=== PATIENT | male | born 1950 | race Caucasian/White ===

== ENCOUNTER 2017-01-18 08:01 | Observation (INO) | payer MEDICARE, BC ==
[2017-01-18] MEDS ORDERED: BABY ASPIRIN 81 MG CHEW PO ONE (08:05)
[2017-01-18] MEDS ORDERED: Cardizem IV 50 MG/10 ML IV ONE ×2 (08:07→08:19)
[2017-01-18] MEDS ORDERED: CARDIZEM DRIP 100 MG/100 ML D5W 100 ML IV PRN (08:07)
--- NOTE | 2017-01-18 08:14 | ERPHSYRPT ---
- History of Present Illness Time Seen by Provider: 01/18/17 08:03 Historian: patient Exam Limitations: no limitations Patient Subjective Stated Complaint: arrhythmia Triage Nursing Assessment: states as of yesterday, pt states he felt run down. went to cardiac rehab and ekg showed afib. on arrival, pt skin warm, dry. denies pain or chest prssure, just 'feels run down' no sob noted. no n/v Timing/Duration: today Activities at Onset: none, other (He had not begun his exercise yet, but was found to be in rapid rhythm on monitor prior to exercise) Quality: other (palpitations) Severity of Pain-Max: none Severity of Pain-Current: none Modifying Factors: Improves With: nothing Associated Symptoms: other (malaise) Nitro Today/Relief: no nitro taken today Aspirin Treatment Today: no aspirin today Allergies/Adverse Reactions: No Known Drug Allergies Allergy (Verified 01/18/17 08:07) Home Medications: Aspirin 81 mg PO DAILY 01/18/17 [History] Clopidogrel Bisulfate 75 mg [PLAVIX 75 MG Tablet] 75 mg PO DAILY 01/18/17 [History] Docusate Sodium 100 mg [Colace 100 MG] 100 mg PO DAILY 01/18/17 [History] Dutasteride 0.5 MG [Avodart 0.5 MG] 0.5 mg PO DAILY 01/18/17 [History] Lactobacillus Acidophilus [Acidophilus] 2 each PO DAILY 01/18/17 [History] Metoprolol Tartrate 25 mg [Lopressor 25MG Tab] 12.5 mg PO DAILY 01/18/17 [ History] PANTOPRAZOLE 40 mg Tablet [Protonix 40MG Tablet] 40 mg PO DAILY 01/18/17 [ History] Rivaroxaban 10 mg Tablet [Xarelto 10 mg Tablet] 10 mg PO DAILY 01/18/17 [ History] Rosuvastatin Calcium [Crestor] 40 mg PO DAILY 01/18/17 [History] Saw [place] 500 mg PO BID 01/18/17 [History] Tamsulosin HCl 0.4 mg [Flomax 0.4 MG] 0.4 mg PO DAILY 01/18/17 [History] Hx Tetanus, Diphtheria Vaccination/Date Given: Yes Hx Influenza Vaccination/Date Given: Yes Hx Pneumococcal Vaccination/Date Given: No Immunizations Up to Date: Yes - Review of Systems Constitutional: Malaise Eyes: No Symptoms Ears, Nose, & Throat: No Symptoms Respiratory: No Symptoms Cardiac: Palpitations Abdominal/Gastrointestinal: No Symptoms Musculoskeletal: No Symptoms Skin: No Symptoms Psychological: No Symptoms Endocrine: No Symptoms Hematologic/Lymphatic: No Symptoms Immunological/Allergic: No Symptoms - Past Medical History Pertinent Past Medical History: Yes Neurological History: No Pertinent History ENT History: No Pertinent History Cardiac History: Angina, Coronary Artery Disease, High Cholesterol, Myocardial Infarction (CT) Respiratory History: Sleep Apnea Endocrine Medical History: No Pertinent History Musculoskeletal History: Arthritis GI Medical History: Diverticulosis History: No Pertinent History Psycho-Social History: No Pertinent History Male Reproductive Disorders: No Pertinent History - Past Surgical History Past Surgical History: Yes Neuro Surgical History: No Pertinent History Cardiac: Angioplasty, CABG, Cardiac Catheterization, Cardiac Stent Respiratory: No Pertinent History Gastrointestinal: Cholecystectomy Genitourinary: No Pertinent History Musculoskeletal: Orthopedic Surgery Male Surgical History: Vasectomy - Social History Smoking Status: Never smoker Exposure to second hand smoke: No Drug Use: none Patient Lives Alone: No - Nursing Vital Signs Nursing Vital Signs: Initial Vital Signs Temperature 97.6 F Temperature Source Oral Pulse Rate 70 Respiratory Rate 18 Blood Pressure [Right Arm] 106/60 Blood Pressure 106/51 Pain Intensity 0 - Physical Exam General Appearance: mild distress Eye Exam: eyes nml inspection Ears, Nose, Throat Exam: normal ENT inspection, pharynx normal Neck Exam: normal inspection, non-tender, supple, full range of motion Respiratory Exam: normal breath sounds, lungs clear, airway intact Cardiovascular Exam: tachycardia Gastrointestinal/Abdomen Exam: soft, normal bowel sounds Extremity Exam: normal inspection, normal range of motion, pelvis stable, other (healed SVG donor sites LE) Neurologic Exam: alert, oriented x 3, cooperative, normal mood/affect, nml cerebellar function, nml station & gait, sensation nml Skin Exam: normal color, warm, dry SpO2 Interpretation: normal SpO2: 98 Oxygen Delivery: Room Air - Course Nursing assessment & vital signs reviewed: Yes EKG Interpreted by Me: RATE (109), A-fib, Right Esparto Deviation (at +123 degrees. 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 01/18/17 08:05 Active EKG-ER Only STAT Care 01/18/17 08:05 Active IV Insertion STAT Care 01/18/17 08:05 Active Oxygen-ED Only NASAL CANNULA 2 lpm Care 01/18/17 08:05 Active Pulse Oximetry (ED) STAT Care 01/18/17 08:05 Active CHEST 1 VIEW (PORTABLE) Stat Exams 01/18/17 08:06 Completed CBC W DIFF Stat Lab 01/18/17 08:10 Completed CK-Creatinine Phosphokinase Stat Lab 01/18/17 08:10 Completed CMP Stat Lab 01/18/17 08:10 Completed NT PRO BNP Stat Lab 01/18/17 08:10 Completed PROTIME WITH INR Stat Lab 01/18/17 08:10 Completed TROPONIN Q3H Lab 01/18/17 08:10 Completed TROPONIN Q3H Lab 01/18/17 11:15 Ordered TROPONIN Q3H Lab 01/18/17 14:15 Ordered TROPONIN Q3H Lab 01/18/17 17:15 Ordered TROPONIN Q3H Lab 01/18/17 20:15 Ordered Medication Summary Generic Name Dose Route Start Last Admin Trade Name Freq PRN Reason Stop Dose Admin Diltiazem HCl 100 mls @ 5 mls/hr 01/18/17 08:07 01/18/17 08:29 Cardizem Drip 100 Mg/100 Ml D5w IV 02/17/17 08:06 5 mg/hr .Q20H PRN 5 mls/hr HEART RATE/ A-FIB Administration Protocol 5 MG/HR Sodium Chloride 1,000 mls @ 100 mls/hr 01/18/17 08:30 01/18/17 08:30 Sodium Chloride 0.9% 1000 Ml IV 02/17/17 08:29 100 mls/hr .Q10H BORIS Administration Discontinued Medications Generic Name Dose Route Start Last Admin Trade Name Freq PRN Reason Stop Dose Admin Aspirin 324 mg 01/18/17 08:05 01/18/17 08:19 Baby Aspirin 81 Mg Chew PO 01/18/17 08:06 324 mg STAT ONE Administration Aspirin Confirm 01/18/17 08:16 Baby Aspirin 81 Mg Chew Administered 01/18/17 08:17 Dose 324 mg .ROUTE .STK-MED ONE Diltiazem HCl 15 mg 01/18/17 08:07 01/18/17 08:18 Cardizem Iv 50 Mg/10 Ml IV 01/18/17 08:08 15 mg STAT ONE Administration Diltiazem HCl Confirm 01/18/17 08:19 Cardizem Iv 50 Mg/10 Ml Administered 01/18/17 08:20 Dose 50 mg IV .STK-MED ONE Lab/Rad Data: Laboratory Result Diagrams 01/18/17 08:10 01/18/17 08:10 Laboratory Results 01/18/17 01/18/17 01/18/17 Range/Units 08:10 08:10 08:10 WBC (4.0-10.5) K/mm3 RBC (4.1-5.6) M/mm3 Hgb (12.5-18.0) gm/dl Hct (42-50) % MCV (78-100) fl MCH (26-32) pg MCHC (32-36) g/dl RDW (11.5-14.0) % Plt Count (150-450) K/mm3 MPV (6-9.5) fl Gran % (36.0-66.0) % Lymphocytes % (24.0-44.0) % Monocytes % (0.0-12.0) % Eosinophils % (0.00-5.0) % Basophils % (0.0-0.4) % Basophils # (0-0.4) INR 1.32 (0.8-3.0) Sodium 142 (136-145) mEq/L Potassium 3.8 (3.5-5.1) mEq/L Chloride 105 (98-107) mEq/L Carbon Dioxide 25.8 (21-32) mEq/L Anion Gap 14.6 (5-15) MEQ/L BUN 16 (9-20) mg/dL Creatinine 1.21 (0.55-1.30) mg/dl Estimated GFR > 60 ML/MIN Glucose 190 H (70-110) MG/DL Calcium 8.9 (8.5-10.1) mg/dL Total Bilirubin 0.60 (0.2-1.0) mg/dL AST 14 L (15-37) U/L ALT 26 (12-78) U/L Alkaline Phosphatase 58 (46-116) U/L Creatine Kinase 67 (39-308) U/L Troponin I 0.018 (0.000-0.056) ng/ml NT-Pro-B Natriuret Pep 980 H (0-125) pg/ml Serum Total Protein 7.2 (6.4-8.2) gm/dL Albumin 3.6 (3.4-5.0) g/dL 01/18/17 Range/Units 08:10 WBC 7.8 (4.0-10.5) K/mm3 RBC 5.36 (4.1-5.6) M/mm3 Hgb 15.6 (12.5-18.0) gm/dl Hct 45.7 (42-50) % MCV 85.3 (78-100) fl MCH 29.1 (26-32) pg MCHC 34.1 (32-36) g/dl RDW 13.6 (11.5-14.0) % Plt Count 179 (150-450) K/mm3 MPV 11.0 H (6-9.5) fl Gran % 59.4 (36.0-66.0) % Lymphocytes % 29.1 (24.0-44.0) % Monocytes % 9.8 (0.0-12.0) % Eosinophils % 1.3 (0.00-5.0) % Basophils % 0.4 (0.0-0.4) % Basophils # 0.03 (0-0.4) INR (0.8-3.0) Sodium (136-145) mEq/L Potassium (3.5-5.1) mEq/L Chloride (98-107) mEq/L Carbon Dioxide (21-32) mEq/L Anion Gap (5-15) MEQ/L BUN (9-20) mg/dL Creatinine (0.55-1.30) mg/dl Estimated GFR ML/MIN Glucose (70-110) MG/DL Calcium (8.5-10.1) mg/dL Total Bilirubin (0.2-1.0) mg/dL AST (15-37) U/L ALT (12-78) U/L Alkaline Phosphatase (46-116) U/L Creatine Kinase (39-308) U/L Troponin I (0.000-0.056) ng/ml NT-Pro-B Natriuret Pep (0-125) pg/ml Serum Total Protein (6.4-8.2) gm/dL Albumin (3.4-5.0) g/dL - Progress Progress: improved Air Movement: good Blood Culture(s) Obtained: No Antibiotics given: No Discussed with Dr.: Gordon (accepts for Dr. Gardner), Other (Dr. Maldonado agrees with admission here.) Counseled pt/family regarding: lab results, diagnosis, need for follow-up, rad results - Departure Time of Disposition: 09:00 Departure Disposition: Observation Clinical Impression: Atrial fibrillation with rapid ventricular response, H/O heart artery stent, H/ O coronary artery bypass surgery Condition: Stable Critical Care Time: Yes Critical Care Time(excluding separately billable procedures): 75-104 minutes ( Atrial Fib nwith RVR with Cardizem IV to control rate. Discussed with Network Systems Integrator, pt. and spouse.)
[2017-01-18] MEDS ORDERED: BABY ASPIRIN 81 MG CHEW ONE (08:16)
[2017-01-18 08:19] LABS: BASOPHIL % 0.4 % (0.0-0.4); Eosinophil % 1.3 % (0.00-5.0); Granulocytes % 59.4 % (36.0-66.0); Lymphocytes % 29.1 % (24.0-44.0); Mean Cell Volume 85.3 fl (78-100); Mean Corpuscular Hemoglobin 29.1 pg (26-32); Monocytes % 9.8 % (0.0-12.0); Platelet Count 179 K/mm3 (150-450); Red Blood Count 5.36 M/mm3 (4.1-5.6); Red Cell Distribution Width 13.6 % (11.5-14.0); White Blood Count 7.8 K/mm3 (4.0-10.5)
[2017-01-18] MEDS ORDERED: Sodium Chloride 0.9% 1000 ML 1,000 ML ONE (08:27)
[2017-01-18 08:30] LABS: INR 1.32 (0.8-3.0); PROTIME 14.8 SECONDS (8.83-12.87)
[2017-01-18] MEDS ORDERED: Sodium Chloride 0.9% 1000 ML 1,000 ML IV SCH (08:30)
--- NOTE | 2017-01-18 08:32 | XRAY ---
Indication: Atrial fibrillation. Comparison: September 24, 2008. Portable chest underinflated today again with bilateral calcified granulomas. Bibasilar linear opacities favor atelectasis/scarring. Remaining lungs clear. Heart is not enlarged for AP portable technique and again demonstrates previous CABG surgery. Bony thorax intact again with osteopenia and degenerative changes. Impression: Nonacute underinflated chest with chronic features.
[2017-01-18 08:45] LABS: ALBUMIN 3.6 g/dL (3.4-5.0); ALKALINE PHOSPHATASE 58 U/L (46-116); ANION GAP 14.6 MEQ/L (5-15); BLOOD UREA NITROGEN 16 mg/dL (9-20); CHLORIDE 105 mEq/L (98-107); Carbon Dioxide 25.8 mEq/L (21-32); Glucose 190 MG/DL (70-110); Potassium 3.8 mEq/L (3.5-5.1); SGOT/AST 14 U/L (15-37); SGPT/ALT 26 U/L (12-78); SODIUM 142 mEq/L (136-145); Total Protein 7.2 gm/dL (6.4-8.2)
[2017-01-18] MEDS ORDERED: Lasix 40 MG/4 ML IV ONE (09:18)
[2017-01-18] MEDS ORDERED: Lasix 40 MG/4 ML ONE (09:21)
[2017-01-18] MEDS ORDERED: MORPHINE SULFATE 4 MG INJ IV PRN (11:40)
[2017-01-18] MEDS ORDERED: PROTONIX 40 MG IV IV SCH (11:40)
[2017-01-18] MEDS ORDERED: Zofran 4 MG/2 ML VIAL IV PRN (11:40)
--- NOTE | 2017-01-18 12:59 | PCM.HP ---
History of Present Illness - Chief Complaint Chief Complaint: Afib with RVR History of Present Illness: is a 66 year old male with a history of CABG in the past with subsequent stenting of grafts earlier this year. He presented to cardiac rehab this morning and was found to be in a fib with RVR. He reports that he felt tight in his upper chest last night and had some nausea but no vomiting. He is currently on a cardizem drip and rate is controlled and he has no chest pain, no dyspnea, no palpitations, he states he feels normal. He has been seen by Dr Maldonado and is going to be started on po cordarone. - Review of Systems Constitutional: No Fever, No Chills Respiratory: No Cough, No Short Of Breath Cardiac: Palpitations, No Chest Pain, No Edema, No Syncope Abdominal/Gastrointestinal: No Abdominal Pain, No Nausea, No Vomiting, No Diarrhea Genitourinary Symptoms: No Dysuria Skin: No Rash All Other Systems: Reviewed and Negative Medications & Allergies Home Medications: Home Medication List Aspirin 81 mg PO DAILY 01/18/17 [History Confirmed 01/18/17] Clopidogrel Bisulfate 75 mg [PLAVIX 75 MG Tablet] 75 mg PO DAILY 01/18/17 [History Confirmed 01/18/17] Docusate Sodium 100 mg [Colace 100 MG] 100 mg PO DAILY 01/18/17 [History Confirmed 01/18/17] Dutasteride 0.5 MG [Avodart 0.5 MG] 0.5 mg PO DAILY 01/18/17 [History Confirmed 01/18/17] Lactobacillus Acidophilus [Acidophilus] 2 each PO DAILY 01/18/17 [History Confirmed 01/18/17] Metoprolol Tartrate 25 mg [Lopressor 25MG Tab] 12.5 mg PO DAILY 01/18/17 [ History Confirmed 01/18/17] PANTOPRAZOLE 40 mg Tablet [Protonix 40MG Tablet] 40 mg PO DAILY 01/18/17 [ History Confirmed 01/18/17] Rivaroxaban 10 mg Tablet [Xarelto 10 mg Tablet] 10 mg PO DAILY 01/18/17 [ History Confirmed 01/18/17] Rosuvastatin Calcium [Crestor] 40 mg PO DAILY 01/18/17 [History Confirmed ] Saw [place] 500 mg PO BID 01/18/17 [History Confirmed 01/18/17] Tamsulosin HCl 0.4 mg [Flomax 0.4 MG] 0.4 mg PO DAILY 01/18/17 [History Confirmed 01/18/17] Allergies/Adverse Reactions: Allergies Allergy/AdvReac Type Severity Reaction Status Date / Time No Known Drug Allergies Allergy Verified 01/18/17 08:07 - Past Medical History Past Medical History: Yes Neurological History: No Pertinent History ENT History: No Pertinent History Cardiac History: Angina, Arrhythmia, Coronary Artery Disease, High Cholesterol, Myocardial Infarction ([place]) Respiratory History: Sleep Apnea Endocrine Medical History: No Pertinent History Musculoskelatal History: Arthritis GI Medical History: Diverticulosis History: No Pertinent History Pyscho-Social History: No Pertinent History Male Reproductive Disorders: No Pertinent History Comment: cardiac stents total of [address]. [address] 09/22/16. AFIB/Aflutter - Past Surgical History Past Surgical History: Yes Neuro Surgical History: No Pertinent History Cardiac History: Angioplasty, CABG, Cardiac Catheterization, Cardiac Stent Respiratory Surgery: No Pertinent History GI Surgical History: Cholecystectomy Genitourinary Surgical Hx: No Pertinent History Musculskeletal Surgical Hx: Orthopedic Surgery Male Surgical History: Vasectomy Other Surgical History: total hip right, broken femur left leg, broken ankle. rods and steel placed in leg to repair. - Social History Smoking Status: Never smoker Exposure to second hand smoke: No Alcohol: None Drug Use: none - Physical Exam Vital Signs: Vital Signs - 24 hr Temp Pulse Resp BP BP Pulse Ox 01/18/17 12:14 74 18 98 01/18/17 11:47 97.8 F 66 18 109/69 01/18/17 09:40 66 18 104/67 01/18/17 09:28 74 18 106/71 01/18/17 09:10 98 01/18/17 09:00 70 18 106/62 98 01/18/17 08:48 70 18 106/60 97 01/18/17 08:34 66 16 116/61 97 01/18/17 08:31 76 18 116/61 98 01/18/17 08:29 68 16 106/51 01/18/17 08:13 98 01/18/17 08:03 97.6 F 104 H 20 121/76 Oxygen-Last 24 hours O2 Percentage 2 Liters = 28% O2 Percentage 2 Liters = 28% O2 Percentage 2 Liters = 28% O2 Percentage 2 Liters = 28% O2 Percentage 2 Liters = 28% O2 Percentage 2 Liters = 28% General Appearance: no apparent distress, alert Neurologic Exam: alert, oriented x 3, cooperative, normal mood/affect, nml cerebellar function, nml station & gait, sensation nml, No motor deficits Eye Exam: PERRL/EOMI, eyes nml inspection Neck Exam: thyromegaly Cardiovascular Exam: irregular Gastrointestinal/Abdomen Exam: soft, normal bowel sounds, No tenderness, No mass Extremity Exam: normal inspection, normal range of motion, pelvis stable Skin Exam: normal color, warm, dry, No rash Results - Labs Lab/Micro Results: Lab Results-Last 24 Hours 01/18/17 Range/Units 11:40 Troponin I < 0.017 (0.000-0.056) ng/ml Assessment/Plan (1) Atrial fibrillation with rapid ventricular response Current Visit: Yes Status: Acute Assessment & Plan: currently rate controlled, will add tsh to labs and rule out myocardial infarction. appreciate Dr Maldonado's input and will be started on po cordarone as ordered. Code(s): I48.91 - UNSPECIFIED ATRIAL FIBRILLATION (2) H/O coronary artery bypass surgery Current Visit: Yes Status: Acute (3) H/O heart artery stent Current Visit: Yes Status: Acute Code(s): Z95.5 - PRESENCE OF CORONARY ANGIOPLASTY IMPLANT AND GRAFT
[2017-01-18] MEDS: NEXTERONE 360 MG/200 ML BAG 360 MG/200 ML PLAST..BAG IV SCH ×2 (13:07→20:16)
--- NOTE | 2017-01-18 13:36 | CONS ---
CONSULT DATE: 01/18/17 BRIEF HISTORY: This is a 66 y/o male, with known history of coronary artery disease status post previous coronary artery bypass surgery status post recent myocardial infarction post PCI to the left circumflex, who was admitted this morning because of atrial fibrillation. Patient apparently woke up this morning. Was nauseated. Was having some chest discomfort. He went for his cardiac rehab. An EKG was performed and showed he was in atrial fibrillation with a rapid ventricular response. He was then brought to the Emergency Room and was started on IV Cardizem. Currently, he is chest pain free. He denies any shortness of breath. He is still in atrial fibrillation on Cardizem drip. Patient is known to have coronary artery disease. Has undergone previous coronary artery bypass surgery way back in 1998 and recently had a myocardial infarction ending up with a percutaneous intervention of the circumflex. During his recent confinement in [place] where he had his myocardial infarction, he did have atrial fibrillation and momentarily was placed on amiodarone. He was then discharged on beta-blockers. CARDIOVASCULAR RISK FACTORS: Positive for hyperlipidemia. No diabetes. He does not smoke. Family history is positive for coronary artery disease. No hypertension. CURRENT MEDICATIONS: Aspirin, Crestor, metoprolol, Protonix, Plavix, Flomax, and Xarelto. 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 RESPIRATORY: No chronic cough. No hemoptysis. GI: No history of peptic ulcer or colon disorder. : Negative for dysuria. No hematuria. PERIPHERAL VASCULAR: Negative for deep vein thrombosis or claudication. SKIN: No active dermatological problem. PAST SURGICAL HISTORY: Included coronary artery bypass surgery and some orthopedic procedures. PHYSICAL EXAMINATION: BP is 108/70 with a heart rate of 74 in atrial fibrillation. Respirations about 14. GENERAL: Patient is an elderly male who is alert and oriented who is in no form of distress. HEENT: Unremarkable. NECK: No significant JVD. No carotid bruit. CHEST: Breath sounds are clear. CARDIAC: Heart tones are variable. The rhythm is atrial fibrillation. There is no audible gallop. ABDOMEN: Soft with normal bowel sounds. No bruits. EXTREMITIES: No significant edema with palpable distal pulses. The EKG shows atrial fibrillation with a RBBB. The creatinine is 1.2 and GFR greater than 60. The serum electrolytes are normal. The NT Pro BNP is 980. CBC showed Hgb of 15.6, platelets 179. CONCLUSION: 1. IN ESSENCE, PATIENT HAS PAROXYSMAL ATRIAL FIBRILLATION. We are going to switch him to amiodarone and stop his Cardizem. Continue with anticoagulation. 2. CORONARY ARTERY DISEASE POST PREVIOUS CORONARY ARTERY BYPASS SURGERY POST PREVIOUS PERCUTANEOUS INTERVENTION. Currently, chest pain free. Troponin I within normal limits. 3. HYPERLIPIDEMIA. Continue with statins. Will follow-up with you.
[2017-01-18] MEDS: XARELTO 10 MG TABLET PO SCH (16:41)
[2017-01-18] MEDS: PLAVIX 75 MG Tablet PO SCH (16:41)
[2017-01-18] MEDS: Colace 100 MG PO SCH (16:41)
[2017-01-18] MEDS: Flomax 0.4 MG PO SCH (16:41)
[2017-01-18] MEDS: Avodart 0.5 MG PO SCH (16:42)
[2017-01-18] MEDS: Lopressor 25MG Tab PO SCH (16:42)
[2017-01-18] MEDS: Cordarone 200 MG PO SCH (21:46)
[2017-01-18] MEDS ORDERED: ZOCOR 20MG PO SCH (22:00)
[2017-01-19] MEDS: NEXTERONE 360 MG/200 ML BAG 360 MG/200 ML PLAST..BAG IV SCH (02:25)
[2017-01-19 06:20] LABS: INR 1.85 (0.8-3.0); PROTIME 20.8 SECONDS (8.83-12.87)
[2017-01-19] MEDS ORDERED: NON-FORMULARY ITEM (Rosuvastatin Calcium [Crestor] 40 MG) PO SCH (10:00)
[2017-01-19] MEDS ORDERED: NON-FORMULARY ITEM (Aspirin [Aspirin] 81 MG) PO SCH (10:00)
[2017-01-19] MEDS ORDERED: Protonix 40MG Tablet PO SCH (10:00)
[2017-01-19] MEDS: Lopressor 25MG Tab PO SCH (10:00)
[2017-01-19] MEDS ORDERED: ECOTRIN 81 MG PO SCH (10:00)
[2017-01-19] MEDS: XARELTO 10 MG TABLET PO SCH (10:01)
[2017-01-19] MEDS: Cordarone 200 MG PO SCH (10:01)
[2017-01-19] MEDS: Avodart 0.5 MG PO SCH (10:03)
[2017-01-19] MEDS: Colace 100 MG PO SCH (10:03)
[2017-01-19] MEDS: Flomax 0.4 MG PO SCH (10:03)
[2017-01-19] MEDS: PLAVIX 75 MG Tablet PO SCH (10:03)
[2017-01-19 10:41] VITALS: BP 128/70; PULSE 62; O2SAT 97
--- NOTE | 2017-01-19 11:59 | SSS ---
DISCHARGE DIAGNOSIS: 1. ATRIAL FIBRILLATION WITH RAPID VENTRICULAR RESPONSE NOW CONVERTED. 2. CORONARY ARTERY DISEASE. CONSULTANTS: Dr. Maldonado. BRIEF HISTORY: The patient is a 66 y/o WM patient with known history of coronary artery disease. He apparently had a recent coronary bypass surgery. He had also had a recent myocardial infarction to the left circumflex area. The patient was seen in the Emergency Room and admitted due to atrial fibrillation with rapid ventricular response. His symptoms were nausea and chest discomfort. The patient was seen in the Emergency Room and admitted to the hospital. HOSPITAL COURSE: The patient was admitted initially on a Cardizem drip which did not make any difference on his atrial fibrillation. He was therefore then changed to an amiodarone drip which did convert him to normal sinus rhythm which he is currently in presently. The patient is anxious to return home. He has the blessing of his regional marketing manager. He will be placed on amiodarone orally and follow-up with his regional marketing manager in his office. PHYSICAL EXAMINATION: Reveals a well-nourished, well-developed, 66 y/o WM patient in no obvious distress. HEENT: Normocephalic and atraumatic. Pupils equal, round, and reactive to light. Extraocular movements intact. Oropharynx is pink and moist. NECK: Supple without lymphadenopathy, thyromegaly, or JVD. CHEST: Clear to auscultation with good air movement bilaterally. HEART: Regular rate and rhythm without murmurs, rubs, or gallops. There is a median sternotomy scar which is well healed. ABDOMEN: Soft, nontender, nondistended without hepatosplenomegaly or masses. EXTREMITIES: Without cyanosis, clubbing, or edema. NEURO: The patient is alert and oriented X 3. No focal deficits are noted. HOME MEDICATIONS: The patient's home medication list currently includes aspirin 81 mg a day, Plavix 75 mg daily, Colace 100 mg daily, Avodart 0.5 mg daily, metoprolol 25 mg/12.5 mg daily, pantoprazole 40 mg daily, Xarelto 10 mg, Crestor 40 mg, Saw [place], Tamsulosin 0.4 mg daily. LABORATORY DATA: Shows troponins less than 0.017 on several measurements. His nonfasting glucose is 190, BUN 16, creatinine 1.21. Electrolytes were normal. Liver enzymes were normal. NT Pro BNP was 980 which is slightly elevated for our lab. His CBC was normal. Platelets were normal. INR was 1.32. TSH was normal. Chest x-ray showed nonacute underinflated chest with chronic features. EKG/rhythm strip now again reveal sinus rhythm. Again, the patient will be discharged home now on addition of Cordarone with follow-up appointment to see his regional marketing manager within a week.
== END 2017-01-19 10:35 | disposition home or self-care (01) ==
LOC: ED 08:01 → ICU 10:10
PROVIDERS: ADMIT Family Medicine; ATTEND Family Medicine
DX: I48.91 Unspecified atrial fibrillation (principal); I25.810 Atherosclerosis of coronary artery bypass graft(s) without angina pectoris; G47.30 Sleep apnea, unspecified; E78.5 Hyperlipidemia, unspecified; M19.90 Unspecified osteoarthritis, unspecified site; Z79.01 Long term (current) use of anticoagulants; Z79.899 Other long term (current) drug therapy; I25.2 Old myocardial infarction; Z95.5 Presence of coronary angioplasty implant and graft
CPT/HCPCS: 36000; 36415; 71010; 80053; 82550; 83880; 84443; 84484; 85025; 85610; 93005; 93041; 93268; 96360; 96361; 96365; 96374; 96375; 99285; G0378; J1940; A9270-GY

== ENCOUNTER 2018-03-23 12:01 | Emergency (ER) | payer MEDICARE, OTHER ==
--- NOTE | 2018-03-23 12:30 | ERPHSYRPT ---
- History of Present Illness Time Seen by Provider: 03/23/18 12:22 Source: patient Exam Limitations: no limitations Patient Subjective Stated Complaint: cut left wrist with a utility knife. Triage Nursing Assessment: pt has laceration to left wrist, with small amount of bleeding, pressure allpied Physician History: Patient is a 67-year-old right-handed male with his complaining that he accidentally cut his left wrist with an [employer] knife [place]. He denies numbness or tingling. He is able to move his extremity without problems. His last tetanus vaccination was several years ago and the exact date is unknown. His past medical history is significant for CAD, CABG, coronary artery stent placement, A. fib, hypertension, high cholesterol, GERD, and BPH. Timing/Duration: today Quality: other (laceration) Severity: mild Location: extremities (left wrist) Possible Causes: other (knife) Associated Symptoms: denies symptoms Allergies/Adverse Reactions: No Known Drug Allergies Allergy (Verified 03/23/18 12:05) Home Medications: Aspirin 81 mg PO DAILY 01/18/17 [History] Clopidogrel Bisulfate 75 mg [PLAVIX 75 MG Tablet] 75 mg PO DAILY 01/18/17 [History] Docusate Sodium 100 mg [Colace 100 MG] 100 mg PO DAILY 01/18/17 [History] Dutasteride 0.5 MG [Avodart 0.5 MG] 0.5 mg PO DAILY 01/18/17 [History] Lactobacillus Acidophilus [Acidophilus] 2 each PO DAILY 01/18/17 [History] Metoprolol Tartrate 25 mg [Lopressor 25MG Tab] 12.5 mg PO DAILY 01/18/17 [ History] PANTOPRAZOLE 40 mg Tablet [Protonix 40MG Tablet] 40 mg PO DAILY 01/18/17 [ History] Rivaroxaban 10 mg Tablet [Xarelto 10 mg Tablet] 10 mg PO DAILY 01/18/17 [ History] Rosuvastatin Calcium [Crestor] 40 mg PO DAILY 01/18/17 [History] Saw [place] 500 mg PO BID 01/18/17 [History] Tamsulosin HCl 0.4 mg [Flomax 0.4 MG] 0.4 mg PO DAILY 01/18/17 [History] Hx Tetanus, Diphtheria Vaccination/Date Given: No Hx Influenza Vaccination/Date Given: No Hx Pneumococcal Vaccination/Date Given: Yes Immunizations Up to Date: Yes - Review of Systems Constitutional: No Fever, No Chills Eyes: No Symptoms Ears, Nose, & Throat: No Symptoms Respiratory: No Cough, No Dyspnea Cardiac: No Chest Pain, No Edema, No Syncope Abdominal/Gastrointestinal: No Abdominal Pain, No Nausea, No Vomiting, No Diarrhea Genitourinary Symptoms: No Dysuria Musculoskeletal: No Back Pain, No Neck Pain Skin: Other (laceration) Neurological: No Dizziness, No Focal Weakness, No Sensory Changes Psychological: No Symptoms Endocrine: No Symptoms Hematologic/Lymphatic: No Symptoms Immunological/Allergic: No Symptoms All Other Systems: Reviewed and Negative - Past Medical History Pertinent Past Medical History: Yes Neurological History: No Pertinent History ENT History: No Pertinent History Cardiac History: Angina, Arrhythmia, Coronary Artery Disease, High Cholesterol, Myocardial Infarction (VT) Respiratory History: Sleep Apnea Endocrine Medical History: No Pertinent History Musculoskeletal History: Arthritis GI Medical History: Diverticulosis History: No Pertinent History Psycho-Social History: No Pertinent History Male Reproductive Disorders: No Pertinent History Other Medical History: cardiac stents total of [address]. [address] 09/22/16. AFIB/ Aflutter - Past Surgical History Past Surgical History: Yes Neuro Surgical History: No Pertinent History Cardiac: Angioplasty, CABG, Cardiac Catheterization, Cardiac Stent Respiratory: No Pertinent History Gastrointestinal: Cholecystectomy Genitourinary: No Pertinent History Musculoskeletal: Orthopedic Surgery Male Surgical History: Vasectomy Other Surgical History: total hip right, broken femur left leg, broken ankle. rods and steel placed in leg to repair. - Social History Smoking Status: Never smoker Exposure to second hand smoke: No Drug Use: none Patient Lives Alone: No - Nursing Vital Signs Nursing Vital Signs: Initial Vital Signs Temperature 97.9 F 03/23/18 12:07 Pulse Rate 62 03/23/18 12:07 Respiratory Rate 03/23/18 12:07 Blood Pressure 137/75 03/23/18 12:07 O2 Sat by Pulse Oximetry 97 03/23/18 12:07 Pain Scale Pain Intensity 0 - Physical Exam General Appearance: no apparent distress, alert Eye Exam: PERRL/EOMI, eyes nml inspection Ears, Nose, Throat Exam: normal ENT inspection, pharynx normal, moist mucous membranes Neck Exam: normal inspection, non-tender, supple, full range of motion Respiratory Exam: normal breath sounds, lungs clear, No respiratory distress Cardiovascular Exam: regular rate/rhythm, normal heart sounds Gastrointestinal/Abdomen Exam: soft, mass, No tenderness Rectal Exam: not done Back Exam: normal inspection, normal range of motion, No CVA tenderness, No vertebral tenderness Extremity Exam: normal inspection, normal range of motion Neurologic Exam: alert, oriented x 3, cooperative, normal mood/affect, sensation nml, No motor deficits Skin Exam: laceration (2.5 cm linear laceration to left wrist) SpO2 Interpretation: normal SpO2: 97 Oxygen Delivery: Room Air Procedures - Laceration/Wound Repair Left Wrist Wound Location: Left, wrist Wound Length (cm): 2.5 Wound's Depth, Shape: superficial, linear Wound Explored: clean Irrigated: No Hibiclens Prep: Yes Anesthesia: local Volume Anesthetic (ccs): 7 Wound Repaired With: sutures Suture Size/Type: 5-0, ethilon Number of Sutures: 3 Ordered Tests: Medication Summary Discontinued Medications Generic Name Dose Route Start Last Admin Trade Name Freq PRN Reason Stop Dose Admin Diphtheria/Tetanus/Acell Pertussis 0.5 ml 03/23/18 12:34 03/23/18 12:40 Adacel Vial IM 03/23/18 12:35 0.5 ml .ONCE ONE Administration Lidocaine HCl 10 ml 03/23/18 12:34 03/23/18 12:52 Xylocaine 1% Hcl 20 Ml Mdv IJ 03/23/18 12:35 10 ml STAT ONE Administration Lidocaine HCl Confirm 03/23/18 12:36 Xylocaine 1% Hcl 20 Ml Mdv Administered 03/23/18 12:37 Dose 5 ml .ROUTE .STK-MED ONE Tetanus/Diphtheria Toxoids Adsorbed Confirm 03/23/18 12:36 Tenivac Vial Administered 03/23/18 12:37 Dose 0.5 ml IM .STK-MED ONE - Progress Progress: improved Counseled pt/family regarding: diagnosis, need for follow-up - Departure Time of Disposition: 13:15 Departure Disposition: Home Clinical Impression: Laceration of left wrist Condition: Stable Critical Care Time: No Referrals: ALEX HANCOCK NP [Primary Care Provider] - Additional Instructions: You had a laceration closed with 3 sutures to your left wrist in the ER. You were given a tetanus vaccination. Keep the wound clean and dry but you can take a brief shower as needed. Have your primary medical doctor remove the sutures in about 12 days. Take Tylenol and ibuprofen as needed.
[2018-03-23] MEDS ORDERED: Adacel Vial IM ONE (12:34)
[2018-03-23] MEDS ORDERED: XYLOCAINE 1% HCL 20 ML MDV IJ ONE (12:34)
[2018-03-23] MEDS ORDERED: TENIVAC VIAL IM ONE (12:36)
[2018-03-23] MEDS ORDERED: XYLOCAINE 1% HCL 20 ML MDV ONE (12:36)
[2018-03-23 13:26] VITALS: BP 140/75; PULSE 50; O2SAT 98
== END 2018-03-23 13:28 | disposition home or self-care (01) ==
LOC: ED 12:01
DX: S61.512A Laceration without foreign body of left wrist, initial encounter (principal); W26.0XXA Contact with knife, initial encounter; Y93.89 Activity, other specified; Y92.79 Other farm location as the place of occurrence of the external cause; Z79.01 Long term (current) use of anticoagulants; Z79.899 Other long term (current) drug therapy
CPT/HCPCS: 12001; 90471; 90714; 90715; 96372; 99284

== ENCOUNTER 2018-07-19 12:08 | Day surgery (SDC) | payer MEDICARE, BC ==
--- NOTE | 2018-07-18 11:16 | HP ---
DATE OF SURGERY: 07/19/2018 ADMISSION DIAGNOSIS: Ventral hernia x2. Patient requiring colonoscopy. ANTICIPATED PROCEDURES: 1) Colonoscopy. 2) Ventral hernia x2. HISTORY OF PRESENT ILLNESS: The patient is due for colonoscopic examination. He also has two hernias, a small one and a larger one in the upper abdomen right upper quadrant. PAST MEDICAL HISTORY: ALLERGIES: NKDA. MEDICATIONS: See list. PAST SURGICAL HISTORY: Open heart. Cholecystectomy. Hip replacement. SOCIAL HISTORY: Negative. FAMILY HISTORY: Negative. REVIEW OF SYSTEMS: Negative. PHYSICAL EXAMINATION: VITAL SIGNS: Normal. CHEST: Clear. COR: Regular. ABDOMEN: No palpable organomegaly or mass. IMPRESSION: Ventral hernia x2. Patient requiring colonoscopy. PLAN: Colonoscopy and ventral herniorrhaphy x2.
[~2018-07-19 12:08] MED LIST: Lactated Ringers 1,000 ML IV ONE; Sensorcaine 0.25% 10 ML ONE
[2018-07-19] MEDS ORDERED: Quelicin Fliptop 200 MG/10 ML IJ ONE (12:09)
[2018-07-19] MEDS ORDERED: Zemuron 100 MG/10 ML IJ ONE (12:09)
[2018-07-19] MEDS ORDERED: Versed 2 MG/2 ML Injection IV ONE (12:09)
[2018-07-19] MEDS ORDERED: DIPRIVAN 200 MG/20 ML IV ONE (12:09)
[2018-07-19] MEDS ORDERED: BRIDION 200MG/2ML IV ONE (12:09)
[2018-07-19] MEDS ORDERED: SUBLIMAZE 250 MCG/5 ML IJ ONE (12:09)
[2018-07-19] MEDS ORDERED: Ephedrine Sulfate 50 MG/ML IJ ONE (12:09)
[2018-07-19] MEDS ORDERED: CEFAZOLIN 2 GM-D5W BAG** 2 GM/50 ML ML IV SCH (12:30)
[2018-07-19] MEDS ORDERED: Lactated Ringers 1,000 ML IV SCH (12:30)
[2018-07-19] MEDS ORDERED: Lactated Ringers 1,000 ML IV ONE (13:50)
[2018-07-19] MEDS ORDERED: KEFZOL 1 GM ONE (14:03)
--- NOTE | 2018-07-19 14:58 | OP ---
SURGERY DATE/TIME: 07/19/2018 1328 PREOPERATIVE DIAGNOSES: 1) Ventral hernia x2. 2) Patient requiring screening colonoscopy. POSTOPERATIVE DIAGNOSES: 1) Ventral hernia x2. 2) Patient requiring screening colonoscopy. PROCEDURES: 1) Hernia converted to one defect, repaired with one piece of mesh i.e. one ventral hernia with mesh. 2) Colonoscopy complete to cecum with no findings other than severe diverticulosis. SURGEON: Galen Ryan M.D. ANESTHESIA: General. COMPLICATIONS: None. CONDITION: Stable. INDICATION: A patient with what seemed like two defects externally and also requiring screening colonoscopy. DESCRIPTION OF PROCEDURE: Taken to surgery. General anesthetic. Routine prep and drape. Upper midline incision. Time out had been performed. There were two defects I believe these are both from previous chest tubes. They were communicated together as one. One piece of mesh was used through one incision. Therefore ventral herniorrhaphy x1 through one incision. It was approximated with 0 Prolene throughout. The mesh was subfascial preperitoneal in nature. It sat very nicely and overlapped nicely. It was coapted against the fascia nicely. Subcutaneous tissue closed, skin closed, sterile dressing applied. The patient turned lateral. Scope advanced to the cecum. The prep was marginal. The ileocecal valve, cecal area was satisfactory. The right colon was fairly well prepped. The sigmoid had severe diverticulosis. The descending colon, sigmoid was lesser prepped with some firm stool in places. There were no gross lesion. No gross mucosal lesion. PLAN: Follow up in five years.
[2018-07-19] MEDS ORDERED: SUBLIMAZE 100 MCG/2 ML ONE (15:03)
[2018-07-19 16:54] VITALS: BP 146/75; PULSE 52; O2SAT 97
== END 2018-07-19 16:38 | disposition home or self-care (01) ==
LOC: SDC 12:08
PROVIDERS: ATTEND Surgery
DX: K43.9 Ventral hernia without obstruction or gangrene (principal); Z12.11 Encounter for screening for malignant neoplasm of colon; K57.90 Diverticulosis of intestine, part unspecified, without perforation or abscess without bleeding
CPT/HCPCS: 00832; 49560; 49568; 94250; C1781; G0121; J0330; J0690; J2250; J2704; J3010; L0625

== ENCOUNTER 2019-05-22 16:33 | Emergency (ER) | payer MEDICARE, OTHER ==
--- NOTE | 2019-05-22 16:36 | ERPHSYRPT ---
- History of Present Illness Time Seen by Provider: 05/22/19 16:36 Historian: patient, family Exam Limitations: no limitations Physician History: 68 y/o white male sent to us by Dr. Cuellar because of pt having abnormal labs today and h/o voluminous diarrhea and abd pain for several days. pt had been on antibiotics for several days for dental procedures. dr. ramon called to notify us pt coming into ED. Activities at Onset: none Quality: cramping Abdominal Pain Onset Location: generalized abdomen Pain Radiation: no radiation Severity of Pain-Max: mild Severity of Pain-Current: mild Modifying Factors: Improves With: other (diarrhea) Associated Symptoms: diarrhea, nausea Previous symptoms: no prior history Allergies/Adverse Reactions: No Known Drug Allergies Allergy (Verified 05/22/19 17:23) Home Medications: Aspirin 81 mg PO DAILY 01/18/17 [History] Metoprolol Tartrate 25 mg [Lopressor 25MG Tab] 12.5 mg PO DAILY 01/18/17 [ History] Saw [place] 500 mg PO BID 01/18/17 [History] Amiodarone HCl 200 mg [Cordarone 200 MG] 100 mg PO DAILY 07/10/18 [History ] L.acidoph,Paracasei, B.lactis [Probiotic] 1 each PO DAILY 07/10/18 [History] Rivaroxaban 10 mg Tablet [Xarelto 10 mg Tablet] 20 mg PO DAILY 07/10/18 [ History] Rosuvastatin Calcium [Crestor] 40 mg PO HS 07/10/18 [History] Ubidecarenone/Vit E Acet [Co Q-10 100 mg Softgel] 1 each PO DAILY 07/10/18 [ History] Dutasteride/Tamsulosin HCl [Dutasteride-Tamsulosin 0.5-0.4] 1 each PO DAILY 05/02 [History] Losartan Potassium [Cozaar] 25 mg PO DAILY 05/22/19 [History] Hx Tetanus, Diphtheria Vaccination/Date Given: No Hx Influenza Vaccination/Date Given: No Hx Pneumococcal Vaccination/Date Given: Yes - Review of Systems Constitutional: No Symptoms Eyes: No Symptoms Ears, Nose, & Throat: No Symptoms Respiratory: No Symptoms Cardiac: No Symptoms Abdominal/Gastrointestinal: Abdominal Pain, Diarrhea Genitourinary Symptoms: No Symptoms Musculoskeletal: No Symptoms Skin: No Symptoms Neurological: No Symptoms Psychological: No Symptoms Endocrine: No Symptoms Hematologic/Lymphatic: No Symptoms Immunological/Allergic: No Symptoms All Other Systems: Reviewed and Negative - Past Medical History Pertinent Past Medical History: Yes Neurological History: No Pertinent History ENT History: No Pertinent History Cardiac History: Angina, Arrhythmia, Coronary Artery Disease, High Cholesterol, Myocardial Infarction (ME) Respiratory History: Sleep Apnea Endocrine Medical History: No Pertinent History Musculoskeletal History: Arthritis GI Medical History: Diverticulosis History: No Pertinent History Psycho-Social History: No Pertinent History Male Reproductive Disorders: No Pertinent History Other Medical History: cardiac stents total of [address]. [address] 09/22/16. AFIB/ Aflutter - Past Surgical History Past Surgical History: Yes Neuro Surgical History: No Pertinent History Cardiac: Angioplasty, CABG, Cardiac Catheterization, Cardiac Stent Respiratory: No Pertinent History Gastrointestinal: Cholecystectomy Genitourinary: No Pertinent History Musculoskeletal: Orthopedic Surgery Male Surgical History: Vasectomy Other Surgical History: total hip right, broken femur left leg, broken ankle. rods and steel placed in leg to repair. - Social History Smoking Status: Never smoker Exposure to second hand smoke: No Drug Use: none Patient Lives Alone: No - Nursing Vital Signs Nursing Vital Signs: Initial Vital Signs Temperature 97.8 F 05/22/19 16:47 Pulse Rate 60 05/22/19 16:47 Blood Pressure 129/72 05/22/19 16:47 O2 Sat by Pulse Oximetry 98 05/22/19 16:47 Pain Scale Pain Intensity 4 - Physical Exam General Appearance: mild distress, alert, anxiety Eye Exam: PERRL/EOMI, eyes nml inspection Ears, Nose, Throat Exam: normal ENT inspection, dry mucous membranes Neck Exam: normal inspection, non-tender, supple, full range of motion Respiratory Exam: normal breath sounds, lungs clear, airway intact, No chest tenderness, No respiratory distress Cardiovascular Exam: regular rate/rhythm, normal heart sounds, normal peripheral pulses Gastrointestinal/Abdomen Exam: soft, tenderness (mild diffuse) Rectal Exam: not done Back Exam: normal inspection, normal range of motion, No CVA tenderness, No vertebral tenderness Extremity Exam: normal inspection, normal range of motion, pelvis stable Neurologic Exam: alert, oriented x 3, cooperative, program manufacturing leader II-XII nml as tested Skin Exam: normal color, warm, dry Lymphatic Exam: No adenopathy SpO2 Interpretation: normal O2 Delivery: Room Air - Course Nursing assessment & vital signs reviewed: Yes Ordered Tests: Active Orders 24 hr Category Date Time Status IV Insertion STAT Care 05/22/19 16:53 Active ABDOMEN AND PELVIS W/0 CONTRAS [CT] Stat Exams 05/22/19 16:54 Taken AMYLASE Stat Lab 05/22/19 17:10 Completed BLOOD CULTURE Stat Lab 05/22/19 17:25 Received CBC W DIFF Stat Lab 05/22/19 17:10 Completed CMP Stat Lab 05/22/19 17:10 Completed LIPASE Stat Lab 05/22/19 17:10 Completed Lactic Acid Stat Lab 05/22/19 16:53 Completed Manual Differential NC Stat Lab 05/22/19 17:10 Completed UA W/RFX UR CULTURE Stat Lab 05/22/19 17:52 Completed Medication Summary Discontinued Medications Generic Name Dose Route Start Last Admin Trade Name Freq PRN Reason Stop Dose Admin Hydrocodone Bitart/Acetaminophen 10 ml 05/22/19 19:12 05/22/19 19:26 Hydrocodone-Acetamin 2.5-108/5 Ml Solution PO 05/22/19 19:13 10 ml STAT STA Administration Hydrocodone Bitart/Acetaminophen Confirm 05/22/19 19:20 Hydrocodone-Acetamin 2.5-108/5 Ml Solution Administered 05/22/19 19:21 Dose 10 ml .ROUTE .STK-MED ONE Ciprofloxacin 500 mg 05/22/19 19:11 05/22/19 19:25 Cipro 500 Mg PO 05/22/19 19:12 500 mg STAT ONE Administration Ciprofloxacin Confirm 05/22/19 19:20 Cipro 500 Mg Administered 05/22/19 19:21 Dose 500 mg .ROUTE .STK-MED ONE Sodium Chloride 1,000 mls @ 999 mls/hr 05/22/19 16:53 05/22/19 18:50 Sodium Chloride 0.9% 1000 Ml IV 05/22/19 17:53 Infused .Q1H1M STA Infusion Sodium Chloride Confirm 05/22/19 17:20 Sodium Chloride 0.9% 1000 Ml Administered 05/22/19 17:21 Dose 1,000 mls @ ud .ROUTE .STK-MED ONE Sodium Chloride 1,000 mls @ 999 mls/hr 05/22/19 19:09 05/22/19 19:26 Sodium Chloride 0.9% 1000 Ml IV 05/22/19 20:09 999 mls/hr .Q1H1M STA Administration Sodium Chloride Confirm 05/22/19 19:20 Sodium Chloride 0.9% 1000 Ml Administered 05/22/19 19:21 Dose 1,000 mls @ ud .ROUTE .STK-MED ONE Metronidazole 500 mg 05/22/19 19:10 05/22/19 19:25 Flagyl 500 Mg PO 05/22/19 19:11 500 mg STAT ONE Administration Metronidazole Confirm 05/22/19 19:20 Flagyl 500 Mg Administered 05/22/19 19:21 Dose 500 mg .ROUTE .STK-MED ONE Ondansetron HCl 4 mg 05/22/19 16:53 05/22/19 17:50 Zofran 4 Mg/2 Ml Vial IV 05/22/19 16:54 4 mg STAT ONE Administration Ondansetron HCl Confirm 05/22/19 17:20 Zofran 4 Mg/2 Ml Vial Administered 05/22/19 17:21 Dose 4 mg .ROUTE .STK-MED ONE Lab/Rad Data: Laboratory Result Diagrams 05/22/19 17:10 05/22/19 17:10 Laboratory Results 05/22/19 05/22/19 05/22/19 Range/Units 20:10 17:52 17:10 WBC (4.0-10.5) K/mm3 RBC (4.1-5.6) M/mm3 Hgb (12.5-18.0) gm/dl Hct (42-50) % MCV (78-100) fl MCH (26-32) pg MCHC (32-36) g/dl RDW (11.5-14.0) % Plt Count (150-450) K/mm3 MPV (6-9.5) fl Sodium 140 (137-145) mmol/L Potassium 3.9 (3.5-5.1) mmol/L Chloride 104 (98-107) mmol/L Carbon Dioxide 23 (22-30) mmol/L Anion Gap 17.1 H (5-15) MEQ/L BUN 17 (9-20) mg/dL Creatinine 0.95 (0.66-1.25) mg/dL Estimated GFR > 60.0 ML/MIN Glucose 129 H (74-106) mg/dL Lactic Acid (0.4-2.0) Calcium 9.1 (8.4-10.2) mg/dL Total Bilirubin 0.70 (0.2-1.3) mg/dL AST 25 (17-59) U/L ALT 24 (0-50) U/L Alkaline Phosphatase 57 (38-126) U/L Serum Total Protein 7.4 (6.3-8.2) g/dL Albumin 4.2 (3.5-5.0) g/dL Amylase 61 (30-110) U/L Lipase 52 (23-300) U/L Urine Color YELLOW (YELLOW) Urine Appearance CLEAR (CLEAR) Urine pH 5.0 (5-6) Ur Specific Calcium 1.017 (1.005-1.025) Urine Protein NEGATIVE (Negative) Urine Ketones NEGATIVE (NEGATIVE) Urine Blood MODERATE (0-5) Sincere/ul Urine Nitrite NEGATIVE (NEGATIVE) Urine Bilirubin NEGATIVE (NEGATIVE) Urine Urobilinogen NEGATIVE (0-1) mg/dL Ur Leukocyte Esterase NEGATIVE (NEGATIVE) Urine WBC (Auto) 0-2 (0-5) /HPF Urine RBC (Auto) 0-2 (0-2) /HPF U Epithel Cells (Auto) NONE (FEW) /HPF Urine Bacteria (Auto) RARE (NEGATIVE) /HPF Urine Mucus (Auto) SLIGHT (NEGATIVE) /HPF Urine Culture Reflexed NO (NO) Urine Glucose NEGATIVE (NEGATIVE) mg/dL C. difficile Screen NEGATIVE (NEGATIVE) C.difficile 027-NAP1-B1 PRESUMPTIVE NEGATIVE (NEGATIVE) 05/22/19 05/22/19 Range/Units 17:10 16:53 WBC 10.7 H (4.0-10.5) K/mm3 RBC 4.80 (4.1-5.6) M/mm3 Hgb 14.7 (12.5-18.0) gm/dl Hct 44.4 (42-50) % MCV 92.5 (78-100) fl MCH 30.6 (26-32) pg MCHC 33.1 (32-36) g/dl RDW 13.1 (11.5-14.0) % Plt Count 186 (150-450) K/mm3 MPV 10.8 H (6-9.5) fl Sodium (137-145) mmol/L Potassium (3.5-5.1) mmol/L Chloride (98-107) mmol/L Carbon Dioxide (22-30) mmol/L Anion Gap (5-15) MEQ/L BUN (9-20) mg/dL Creatinine (0.66-1.25) mg/dL Estimated GFR ML/MIN Glucose (74-106) mg/dL Lactic Acid 1.9 (0.4-2.0) Calcium (8.4-10.2) mg/dL Total Bilirubin (0.2-1.3) mg/dL AST (17-59) U/L ALT (0-50) U/L Alkaline Phosphatase (38-126) U/L Serum Total Protein (6.3-8.2) g/dL Albumin (3.5-5.0) g/dL Amylase (30-110) U/L Lipase (23-300) U/L Urine Color (YELLOW) Urine Appearance (CLEAR) Urine pH (5-6) Ur Specific Calcium (1.005-1.025) Urine Protein (Negative) Urine Ketones (NEGATIVE) Urine Blood (0-5) Sincere/ul Urine Nitrite (NEGATIVE) Urine Bilirubin (NEGATIVE) Urine Urobilinogen (0-1) mg/dL Ur Leukocyte Esterase (NEGATIVE) Urine WBC (Auto) (0-5) /HPF Urine RBC (Auto) (0-2) /HPF U Epithel Cells (Auto) (FEW) /HPF Urine Bacteria (Auto) (NEGATIVE) /HPF Urine Mucus (Auto) (NEGATIVE) /HPF Urine Culture Reflexed (NO) Urine Glucose (NEGATIVE) mg/dL C. difficile Screen (NEGATIVE) C.difficile 027-NAP1-B1 (NEGATIVE) - Progress Progress: improved, re-examined Progress Note: 05/22/19 19:28 ct abd/pelvis-mild desc/sigmoid diverticulitis without complications. 05/22/19 20:55 pt states he is 100% better. 05/22/19 20:56 Counseled pt/family regarding: lab results, diagnosis, need for follow-up, rad results - Departure Departure Disposition: Home Clinical Impression: Diverticulitis large intestine w/o perforation or abscess w/o bleeding Condition: Stable Critical Care Time: No Referrals: ALEX HANCOCK NP [Primary Care Provider] - Additional Instructions: clear liquids. follow up with primary doctor for further management Prescriptions: Ciprofloxacin [Cipro 500 MG] 500 mg PO BID #14 tablet Hydrocodone/APAP 5-325 Tab^^^ [[place] 5-325 Tablet^^^] 1 tab PO Q8H PRN #7 tablet MDD 3 PRN Reason: Pain Metronidazole 500 mg [Flagyl 500 MG] 500 mg PO TID #21 tablet
[2019-05-22] MEDS ORDERED: Zofran 4 MG/2 ML VIAL IV ONE (16:53)
[2019-05-22] MEDS ORDERED: Sodium Chloride 0.9% 1000 ML 1,000 ML IV STA ×2 (16:53→19:09)
[2019-05-22] MEDS ORDERED: Zofran 4 MG/2 ML VIAL ONE (17:20)
[2019-05-22] MEDS ORDERED: Sodium Chloride 0.9% 1000 ML 1,000 ML ONE ×2 (17:20→19:20)
[2019-05-22 17:26] LABS: Lactic Acid 1.9 (0.4-2.0)
[2019-05-22 17:38] LABS: Hematocrit 44.4 % (42-50); Hemoglobin 14.7 gm/dl (12.5-18.0); Mean Cell Volume 92.5 fl (78-100); Mean Corpuscular Hemoglobin 30.6 pg (26-32); Mean Corpuscular Hgb Concent. 33.1 g/dl (32-36); Mean Platelet Volume 10.8 fl (6-9.5); Platelet Count 186 K/mm3 (150-450); Red Cell Distribution Width 13.1 % (11.5-14.0); White Blood Count 10.7 K/mm3 (4.0-10.5)
[2019-05-22 17:49] LABS: ALBUMIN 4.2 g/dL (3.5-5.0); ALKALINE PHOSPHATASE 57 U/L (38-126); AMYLASE 61 U/L (30-110); ANION GAP 17.1 MEQ/L (5-15); BLOOD UREA NITROGEN 17 mg/dL (9-20); CHLORIDE 104 mmol/L (98-107); Calcium 9.1 mg/dL (8.4-10.2); Carbon Dioxide 23 mmol/L (22-30); Creatinine 1 0.95 mg/dL (0.66-1.25); Glucose 129 mg/dL (74-106); LIPASE 52 U/L (23-300); Potassium 3.9 mmol/L (3.5-5.1); SGOT/AST 25 U/L (17-59); SGPT/ALT 24 U/L (0-50); SODIUM 140 mmol/L (137-145); Total Protein 7.4 g/dL (6.3-8.2)
[2019-05-22 18:16] LABS: Appearance CLEAR (CLEAR); Bacteria RARE /HPF (NEGATIVE); Bilirubin NEGATIVE (NEGATIVE); Blood MODERATE Ery/ul (0-5); Glucose NEGATIVE (NEGATIVE); Ketones NEGATIVE (NEGATIVE); Leukocyte Esterase NEGATIVE (NEGATIVE); Mucus SLIGHT /HPF (NEGATIVE); Nitrite NEGATIVE (NEGATIVE); Protein,Urine Dip NEGATIVE (Negative); RBC 0-2 /HPF (0-2); Specific Gravity 1.017 (1.005-1.025); Urobilinogen NEGATIVE mg/dL (0-1); WBC 0-2 /HPF (0-5)
[2019-05-22] MEDS ORDERED: Flagyl 500 MG PO ONE (19:10)
[2019-05-22] MEDS ORDERED: Cipro 500 MG PO ONE (19:11)
[2019-05-22] MEDS ORDERED: HYDROCODONE-ACETAMIN 2.5-108/5 ML SOLUTION PO STA (19:12)
[2019-05-22] MEDS ORDERED: HYDROCODONE-ACETAMIN 2.5-108/5 ML SOLUTION ONE (19:20)
[2019-05-22] MEDS ORDERED: Flagyl 500 MG ONE (19:20)
[2019-05-22] MEDS ORDERED: Cipro 500 MG ONE (19:20)
[2019-05-22 20:54] LABS: 027 TOX PROD PRESUMPTIVE NEGATIVE (NEGATIVE); TOXIGENIC C. DIFF ORG NEGATIVE (NEGATIVE)
[2019-05-22 21:01] LABS: BAND 2 % (0.0-2.0); Eosinophil 2 % (0.00-3.0); Lymphocytes 17 % (24-44); Monocyte 7 % (0.0-12.0); Neutrophils 72 % (36.-66.); Total Cells Counted 100
[2019-05-22 21:02] LABS: Platelet Estimate NORMAL (NORMAL)
[2019-05-22 21:39] VITALS: BP 120/54; PULSE 60; O2SAT 96
--- NOTE | 2019-05-23 09:17 | XRAY ---
Indication: Abdomen pain and diarrhea. Multiple contiguous axial images obtained through the abdomen and pelvis without contrast as ordered. Comparison: January 04, 2019 Lung bases again demonstrate left lower lobe calcified granuloma. Mild bibasilar dependent atelectasis. No infiltrate or effusion. Heart is not enlarged. Stable small hiatal hernia. Noncontrasted stomach and bowel loops appear nonobstructed. Normal appendix. Mild scattered descending and sigmoid colonic diverticulosis with minimal diverticulitis. No free fluid/air. Again previous cholecystectomy. Remaining liver, pancreas, spleen, adrenal glands, kidneys, ureters, and bladder appear unremarkable for noncontrast exam. Stable mild scattered aortoiliac calcifications without AAA. Osseous structures intact again with mild degenerative changes throughout the spine, right hip arthroplasty, and partially visualized left femur shaft intramedullary meliton. Stable small bilateral fatty inguinal hernias. Impression: 1. Again scattered colonic diverticulosis with now minimal descending/sigmoid diverticulitis. No complications. 2. Stable small hiatal hernia and bilateral fatty inguinal hernias. 3. Remaining CT abdomen/pelvis without contrast exam is negative. CTDI 22.89
== END 2019-05-22 21:45 | disposition home or self-care (01) ==
LOC: ED 16:33
DX: K57.32 Diverticulitis of large intestine without perforation or abscess without bleeding (principal)
CPT/HCPCS: 36000; 36415; 74176; 80053; 81001; 82150; 83605; 83690; 85025; 87040; 87493; 96360; 96361; 96374; 99284; J2405; A9270-GY

== ENCOUNTER 2022-04-22 07:07 | Emergency (ER) | payer MEDICARE, OTHER ==
[2022-04-22] MEDS ORDERED: BABY ASPIRIN 81 MG CHEW PO ONE (07:29)
[2022-04-22] MEDS ORDERED: SUBLIMAZE 100 MCG/2 ML IV ONE (07:30)
[2022-04-22] MEDS ORDERED: Zofran 4 MG/2 ML VIAL IV ONE (07:30)
[2022-04-22] MEDS ORDERED: Zofran 4 MG/2 ML VIAL ONE (07:32)
[2022-04-22] MEDS ORDERED: SUBLIMAZE 100 MCG/2 ML ONE (07:32)
[2022-04-22 07:45] LABS: Absolute Neutrophil Ct (ANC) 3.19 x10^3/uL (1.4-6.9); Basophil (Absolute #) 0.04 x10^3/uL (0-0.4); Eosinophil % 1.8 % (0.00-5.0); Eosinophil (Absolute #) 0.12 x10^3/uL (0-0.5); Hematocrit 39.6 % (42-50); Hemoglobin 13.3 g/dL (12.5-18.0); Lymphocytes % 37.8 % (24.0-44.0); Mean Cell Volume 89.8 fL (78-100); Mean Corpuscular Hemoglobin 30.2 pg (26-32); Mean Corpuscular Hgb Concent. 33.6 g/dL (32-36); Mean Platelet Volume 10.6 fL (7.5-11.0); Monocyte (Absolute #) 0.75 x10^3/uL (0.0-1.3); Monocytes % 11.3 % (0.0-12.0); Neutrophil % 48.3 % (36.0-66.0); Platelet Count 171 x10^3/uL (150-450); Red Blood Count 4.41 x10^6/uL (4.1-5.6); Red Cell Distribution Width 13.5 % (11.5-14.0); White Blood Count 6.6 x10^3/uL (4.0-10.5)
[2022-04-22 07:58] LABS: ALKALINE PHOSPHATASE 66 U/L (38-126); ANION GAP 11.5 MEQ/L (5-15); BLOOD UREA NITROGEN 17 mg/dL (9-20); CHLORIDE 104 mmol/L (98-107); Calcium 8.6 mg/dL (8.4-10.2); Carbon Dioxide 24 mmol/L (22-30); Creatinine 1 0.96 mg/dL (0.66-1.25); EST GLOMERULAR FILTRATION RATE > 60.0 ML/MIN; Glucose 164 mg/dL (74-106); Potassium 4.2 mmol/L (3.5-5.1); SGOT/AST 21 U/L (17-59); SGPT/ALT 20 U/L (0-50); SODIUM 136 mmol/L (137-145); Total Protein 6.6 g/dL (6.3-8.2)
[2022-04-22 08:00] LABS: INR 1.52 (0.8-3.0); PROTIME 15.5 SECONDS (9.4-12.5); PTT 33.9 SECONDS (25.1-36.5)
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
--- NOTE | 2022-04-22 09:12 | XRAY ---
Indication: Chest, arm, and back pain. Comparison: January 18, 2017 Portable chest remains clear again with incidental bilateral calcified granulomas. Heart borderline enlarged again with CABG. Bony thorax intact again with osteopenia and degenerative changes. Impression: Continued nonacute chest with chronic features.
--- NOTE | 2022-04-22 10:16 | XRAY ---
Indication: Back pain. Conventional contrast enhanced CTA chest performed using 100 cc Isovue 370 contrast. Two-dimensional sagittal and coronal reformatted images obtained. Additional 3-dimensional reformatted images obtained using a separate workstation. Comparison: None There is good opacification of the pulmonary arteries to include the lobar and segmental branches. No pulmonary embolus. Heart borderline enlarged with CABG. Aorta is minimally arteriosclerotic without aneurysm/dissection. Tiny subcarinal calcified node. No pathologic mediastinal/hilar lymphadenopathy. Small hiatal hernia. Lungs demonstrates minimal bilateral dependent atelectasis and small left lower lobe calcified granuloma. No suspicious pulmonary mass/nodule, infiltrate, effusion, or pneumothorax. Bony thorax intact with osteopenia, moderate degenerative changes throughout the spine, and sternotomy wires. Limited upper abdomen demonstrates cholecystectomy clips. Impression: 1. Negative CTA chest with contrast exam. 2. Incidental borderline cardiomegaly with CABG, small hiatal hernia, chronic bony findings, and old granulomatous disease.
[2022-04-22 11:17] VITALS: BP 122/79; PULSE 49
[2022-04-22 11:20] VITALS: O2SAT 100
[2022-04-22 11:42] LABS: INFLUENZA A NEGATIVE (NEGATIVE); INFLUENZA B NEGATIVE (NEGATIVE); RESPIRATORY SYNCTIAL VIRUS NEGATIVE (Negative); SARS-CoV-2 Xpert Express NEGATIVE (NEGATIVE)
== END 2022-04-22 11:45 | disposition short-term general hospital (02) ==
LOC: ED 07:07
DX: I21.4 Non-ST elevation (NSTEMI) myocardial infarction (principal); R07.9 Chest pain, unspecified; R11.0 Nausea; R06.00 Dyspnea, unspecified; I10 Essential (primary) hypertension; E78.5 Hyperlipidemia, unspecified; Z79.01 Long term (current) use of anticoagulants; Z79.899 Other long term (current) drug therapy; Z20.828 Contact with and (suspected) exposure to other viral communicable diseases
CPT/HCPCS: 0241U; 36000; 36415; 71045; 71275; 80053; 84484; 85025; 85379; 85610; 85730; 93005; 96374; 96375; 99285; 99291; J2405; J3010; A9270-GY

== ENCOUNTER 2022-05-15 19:56 | Emergency (ER) | payer MEDICARE, OTHER ==
[2022-05-15] MEDS ORDERED: BABY ASPIRIN 81 MG CHEW PO ONE (20:07)
[2022-05-15 20:14] LABS: Basophil (Absolute #) 0.05 x10^3/uL (0-0.4); Eosinophil % 2.5 % (0.00-5.0); Eosinophil (Absolute #) 0.22 x10^3/uL (0-0.5); Hematocrit 40.7 % (42-50); Hemoglobin 13.4 g/dL (12.5-18.0); Lymphocyte (Absolute #) 1.96 x10^3/uL (1.0-4.6); Lymphocytes % 22.7 % (24.0-44.0); Mean Cell Volume 90.6 fL (78-100); Mean Corpuscular Hemoglobin 29.8 pg (26-32); Mean Corpuscular Hgb Concent. 32.9 g/dL (32-36); Mean Platelet Volume 10.3 fL (7.5-11.0); Monocyte (Absolute #) 1.09 x10^3/uL (0.0-1.3); Monocytes % 12.6 % (0.0-12.0); Neutrophil % 61.4 % (36.0-66.0); Platelet Count 148 x10^3/uL (150-450); Red Blood Count 4.49 x10^6/uL (4.1-5.6); Red Cell Distribution Width 13.2 % (11.5-14.0); White Blood Count 8.6 x10^3/uL (4.0-10.5)
[2022-05-15 20:36] LABS: ALBUMIN 3.9 g/dL (3.5-5.0); ALKALINE PHOSPHATASE 69 U/L (38-126); ANION GAP 10.5 MEQ/L (5-15); BLOOD UREA NITROGEN 17 mg/dL (9-20); CHLORIDE 104 mmol/L (98-107); Calcium 8.7 mg/dL (8.4-10.2); Carbon Dioxide 26 mmol/L (22-30); Creatinine 1 0.86 mg/dL (0.66-1.25); EST GLOMERULAR FILTRATION RATE > 60.0 ML/MIN; Glucose 119 mg/dL (74-106); NT PRO BNP 436 pg/mL (0-900); SGOT/AST 24 U/L (17-59); SGPT/ALT 22 U/L (0-50); SODIUM 137 mmol/L (137-145); Total Protein 6.5 g/dL (6.3-8.2)
--- NOTE | 2022-05-15 20:40 | ERPHSYRPT ---
- History of Present Illness Time Seen by Provider: 05/15/22 20:06 Historian: patient Exam Limitations: no limitations Patient Subjective Stated Complaint: pt states he just had a pacemaker put in last week. states he has been feeling just not well since yesterday. states he has had chest pain off and on since yesterday. Triage Nursing Assessment: pt is alert and oriented. states he has pain is chest off and on 11/21. has taken one nitro that alleviated the pain. pt is talkative and answers questions appropriatly. intermittently rubbing chest in the center. Rythm is paced at 66 on the monitor Physician History: 71 years old male with history of coronary artery disease status post CABG, recent event needing heart cath which showed 70% blockage, could not do stenting almost 2 weeks ago with CODE BLUE on the table and pacemaker was placed then. Patient does have history of atrial fibrillation and is on Xarelto. Reports substernal chest pain started almost an hour ago, lasted for half an hour, took 1 nitro and currently pain-free. Reports moderate intensity sharp pain with radiation to the left arm. Does report some soreness from recent pacemaker placement but this pain was different than routine soreness he is getting since pacemaker placed in. No difficulty breathing or palpitations reported. Patient also reported generalized weakness fatigue and tiredness since yesterday but no fever or chills reported. Timing/Duration: hour(s) (1), sudden, improved Activities at Onset: rest Quality: sharpness Location: central Chest Pain Radiation: arm Severity of Pain-Max: moderate Severity of Pain-Current: none Modifying Factors: Improves With: nitroglycerin Associated Symptoms: denies symptoms Prior Chest Pain/Cardiac Workup: cardiac cath, heart attack Nitro Today/Relief: 0.4 mg x 1 Allergies/Adverse Reactions: morphine Adverse Reaction (Verified 04/22/22 07:11) Home Medications: Aspirin 62 mg PO HS 01/18/17 [History] Amiodarone HCl 200 mg [Cordarone 200 MG] 100 mg PO DAILY 07/10/18 [History] Rivaroxaban 10 mg Tablet [Xarelto 10 mg Tablet] 20 mg PO DAILY 07/10/18 [History] Losartan Potassium [Cozaar] 25 mg PO DAILY 05/22/19 [History] Dutasteride/Tamsulosin HCl [Dutasteride-Tamsulosin 0.5-0.4] 1 tab PO DAILY 12/20/21 [History] Rosuvastatin Calcium 1 tab PO DAILY 12/20/21 [History] Fluticasone Propionate [Flonase NASAL] 1 spray INTRANASAL DAILY PRN 04/22/22 [History] Loratadine 10 mg [Claritin 10 mg] 1 tab PO DAILY 04/22/22 [History] Metoprolol Succinate 1 tab PO DAILY 04/22/22 [History] Nitroglycerin 0.4 mg Tablet [Nitrostat 0.4 MG Tablet] 1 tab PO Q5MIN PRN MR X 3 PRN 04/22/22 [History] Hx Tetanus, Diphtheria Vaccination/Date Given: Yes Hx Influenza Vaccination/Date Given: No Hx Pneumococcal Vaccination/Date Given: Yes Travel Risk - International Travel Have you traveled outside of the country in past 3 weeks: No - Coronavirus Screening Are you exhibiting any of the following symptoms?: No Close contact with a COVID-19 positive Pt in past 14-21 Days: No - Vaccine Status Have you recieved a Covid-19 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: 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: [employer] - Vaccination Dates Date of 2cond Vaccination (if applicable): unknown - Review of Systems Constitutional: Fatigue, Weakness Eyes: No Symptoms Ears, Nose, & Throat: No Symptoms Respiratory: No Symptoms Cardiac: Chest Pain Abdominal/Gastrointestinal: No Symptoms Genitourinary Symptoms: No Symptoms Musculoskeletal: No Symptoms Skin: No Symptoms Neurological: No Symptoms Psychological: No Symptoms Endocrine: No Symptoms Hematologic/Lymphatic: No Symptoms Immunological/Allergic: No Symptoms - Past Medical History Pertinent Past Medical History: Yes Neurological History: No Pertinent History ENT History: Cataracts Cardiac History: Arrhythmia, High Cholesterol, Hypertension, Myocardial Infarction ([place]) Respiratory History: No Pertinent History Endocrine Medical History: No Pertinent History Musculoskeletal History: Arthritis GI Medical History: Diverticulosis History: No Pertinent History Psycho-Social History: No Pertinent History Male Reproductive Disorders: No Pertinent History Other Medical History: HX OF OPEN HEART SURGERY AND HAS HAD STENTS PLACED. Had pacemaker last week - Past Surgical History Past Surgical History: Yes Neuro Surgical History: No Pertinent History Cardiac: Angioplasty, CABG, Cardiac Catheterization, Cardiac Stent Respiratory: No Pertinent History Gastrointestinal: Cholecystectomy Genitourinary: No Pertinent History Musculoskeletal: Orthopedic Surgery Male Surgical History: Vasectomy Other Surgical History: total hip right, broken femur left leg, broken ankle. rods and steel placed in leg to repair. - Social History Smoking Status: Never smoker Exposure to second hand smoke: No Drug Use: none Patient Lives Alone: No - Nursing Vital Signs Nursing Vital Signs: Initial Vital Signs Temperature 97.3 F 05/15/22 19:56 Pulse Rate 82 05/15/22 19:56 Respiratory Rate 16 05/15/22 19:56 Blood Pressure 126/81 05/15/22 19:56 O2 Sat by Pulse Oximetry 95 05/15/22 19:56 Pain Scale Pain Intensity 2 - Physical Exam General Appearance: no apparent distress, alert Eye Exam: PERRL/EOMI Ears, Nose, Throat Exam: normal ENT inspection, pharynx normal Neck Exam: normal inspection, supple, full range of motion Respiratory Exam: normal breath sounds, chest tenderness (Left upper area with eschar, recent pacemaker placement. Minimal tenderness around.), lungs clear Cardiovascular Exam: regular rate/rhythm, normal heart sounds Gastrointestinal/Abdomen Exam: soft, normal bowel sounds, No tenderness Back Exam: normal inspection, normal range of motion Extremity Exam: normal inspection, normal range of motion, pelvis stable Neurologic Exam: alert, oriented x 3, cooperative Skin Exam: normal color SpO2 Interpretation: normal SpO2: 95 O2 Delivery: Room Air - Course EKG Interpreted by Me: RATE (81, atrial paced rhythm), Right [place] Deviation, Right Bundle Branch Block Ordered Tests: Active Orders 24 hr Category Date Time Status Bridge Operator Slip STAT Care 05/15/22 20:07 Active EKG-ER Only STAT Care 05/15/22 20:07 Active IV Insertion STAT Care 05/15/22 20:07 Active CHEST 1 VIEW (PORTABLE) Stat Exams 05/15/22 20:07 Taken CBC W DIFF Stat Lab 05/15/22 20:11 Completed CMP Stat Lab 05/15/22 20:11 Completed NT PRO BNP Stat Lab 05/15/22 20:11 Completed TROPONIN Q4H Lab 05/15/22 20:11 Completed TROPONIN Q4H Lab 05/16/22 04:15 Ordered TROPONIN Routine Lab 05/15/22 23:27 Completed Medication Summary Discontinued Medications Generic Name Dose Route Start Last Admin Trade Name Freq PRN Reason Stop Dose Admin Aspirin 324 mg 05/15/22 20:07 05/15/22 20:11 Aspirin 81 Mg Tab.Chew PO 10/02/22 20:08 324 mg STAT ONE Administration Lab/Rad Data: Laboratory Result Diagrams 05/15/22 20:11 05/15/22 20:11 Laboratory Results 05/15/22 05/15/22 05/15/22 Range/Units 23:27 20:11 20:11 WBC (4.0-10.5) x10^3/uL RBC (4.1-5.6) x10^6/uL Hgb (12.5-18.0) g/dL Hct (42-50) % MCV (78-100) fL MCH (26-32) pg MCHC (32-36) g/dL RDW (11.5-14.0) % Plt Count (150-450) x10^3/uL MPV (7.5-11.0) fL Gran % (36.0-66.0) % Immature Gran % (Auto) (0.00-0.4) % Nucleat RBC Rel Count (0.00-0.1) % Eos # (Auto) (0-0.5) x10^3/uL Immature Gran # (Auto) (0.00-0.03) x10^3u/L Absolute Lymphs (auto) (1.0-4.6) x10^3/uL Absolute Monos (auto) (0.0-1.3) x10^3/uL Absolute Nucleated RBC (0.00-0.01) x10^3u/L Lymphocytes % (24.0-44.0) % Monocytes % (0.0-12.0) % Eosinophils % (0.00-5.0) % Basophils % (0.0-0.4) % Absolute Granulocytes (1.4-6.9) x10^3/uL Basophils # (0-0.4) x10^3/uL Sodium 137 (137-145) mmol/L Potassium 4.0 (3.5-5.1) mmol/L Chloride 104 (98-107) mmol/L Carbon Dioxide 26 (22-30) mmol/L Anion Gap 10.5 (5-15) MEQ/L BUN 17 (9-20) mg/dL Creatinine 0.86 (0.66-1.25) mg/dL Estimated GFR > 60.0 ML/MIN Glucose 119 H (74-106) mg/dL Calcium 8.7 (8.4-10.2) mg/dL Total Bilirubin 0.60 (0.2-1.3) mg/dL AST 24 (17-59) U/L ALT 22 (0-50) U/L Alkaline Phosphatase 69 (38-126) U/L Troponin I 0.090 H* 0.059 H* (0.000-0.034) ng/mL NT-Pro-B Natriuret Pep 436 (0-900) pg/mL Serum Total Protein 6.5 (6.3-8.2) g/dL Albumin 3.9 (3.5-5.0) g/dL 05/15/22 Range/Units 20:11 WBC 8.6 (4.0-10.5) x10^3/uL RBC 4.49 (4.1-5.6) x10^6/uL Hgb 13.4 (12.5-18.0) g/dL Hct 40.7 L (42-50) % MCV 90.6 (78-100) fL MCH 29.8 (26-32) pg MCHC 32.9 (32-36) g/dL RDW 13.2 (11.5-14.0) % Plt Count 148 L (150-450) x10^3/uL MPV 10.3 (7.5-11.0) fL Gran % 61.4 (36.0-66.0) % Immature Gran % (Auto) 0.2 (0.00-0.4) % Nucleat RBC Rel Count 0.0 (0.00-0.1) % Eos # (Auto) 0.22 (0-0.5) x10^3/uL Immature Gran # (Auto) 0.02 (0.00-0.03) x10^3u/L Absolute Lymphs (auto) 1.96 (1.0-4.6) x10^3/uL Absolute Monos (auto) 1.09 (0.0-1.3) x10^3/uL Absolute Nucleated RBC 0.00 (0.00-0.01) x10^3u/L Lymphocytes % 22.7 L (24.0-44.0) % Monocytes % 12.6 H (0.0-12.0) % Eosinophils % 2.5 (0.00-5.0) % Basophils % 0.6 (0.0-0.4) % Absolute Granulocytes 5.30 (1.4-6.9) x10^3/uL Basophils # 0.05 (0-0.4) x10^3/uL Sodium (137-145) mmol/L Potassium (3.5-5.1) mmol/L Chloride (98-107) mmol/L Carbon Dioxide (22-30) mmol/L Anion Gap (5-15) MEQ/L BUN (9-20) mg/dL Creatinine (0.66-1.25) mg/dL Estimated GFR ML/MIN Glucose (74-106) mg/dL Calcium (8.4-10.2) mg/dL Total Bilirubin (0.2-1.3) mg/dL AST (17-59) U/L ALT (0-50) U/L Alkaline Phosphatase (38-126) U/L Troponin I (0.000-0.034) ng/mL NT-Pro-B Natriuret Pep (0-900) pg/mL Serum Total Protein (6.3-8.2) g/dL Albumin (3.5-5.0) g/dL - Progress Progress: improved, re-examined Air Movement: good Progress Note: 05/15/22 22:07 71 years old is evaluated for chest pain. EKG showed paced rhythm. Patient is chest pain-free on presentation in the ER. Patient is anticoagulated on Xarelto. Chest x-ray no acute cardiopulmonary findings reviewed by me, official report is pending. Initial troponin up 0.059. Patient received full dose aspirin on presentation in the ER. Discussed with Dr. 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 Recommended repeating troponin and if trending down, patient can be observed in the hospital here and if trending up patient needs to be transferred. Plan discussed with the patient understands and agrees with it 05/16/22 00:19 Patient second troponin are trending up 0.09, [facility] called again and cannot be transferred there because they are on diversion. I have spoken with Dr. Joseph at [facility] hospitalist, reviewed history, w ork-up and patient is excepted for transfer. Patient currently chest pain-free. Plan discussed with patient and family who understand and agree with it. Blood Culture(s) Obtained: No Antibiotics given: No Discussed with : Other Counseled pt/family regarding: lab results, diagnosis, rad results - Departure Departure Disposition: Transfer Clinical Impression: NSTEMI (non-ST elevated myocardial infarction) Condition: Stable Critical Care Time: No Referrals: ALEX HANCOCK NP [Primary Care Provider] - Follow up/PCP as directed
[2022-05-16 00:21] VITALS: O2SAT 95
[2022-05-16 04:18] VITALS: BP 116/57; PULSE 60
--- NOTE | 2022-05-16 08:46 | XRAY ---
Indication: Chest pain. Comparison: April 22, 2022 Portable chest again inflated and clear with a few incidental calcified granulomas. Heart not enlarged again with CABG and new left dual-lead pacemaker. Bony thorax intact again with osteopenia and degenerative changes. Impression: Continued nonacute chest with chronic features.
== END 2022-05-16 01:53 | disposition short-term general hospital (02) ==
LOC: ED 19:56
DX: I21.4 Non-ST elevation (NSTEMI) myocardial infarction (principal); I25.2 Old myocardial infarction; R07.9 Chest pain, unspecified; R53.1 Weakness; R53.83 Other fatigue; E78.5 Hyperlipidemia, unspecified; I10 Essential (primary) hypertension; Z79.01 Long term (current) use of anticoagulants; Z79.899 Other long term (current) drug therapy; Z95.0 Presence of cardiac pacemaker
CPT/HCPCS: 36000; 36415; 71045; 80053; 83880; 84484; 85025; 93005; 93041; 99285; A9270-GY

== ENCOUNTER 2023-02-02 07:09 | Day surgery (SDC) | payer MEDICARE, OTHER ==
--- NOTE | 2023-02-01 14:51 | PCM.HP ---
History of Present Illness - Chief Complaint History of Present Illness: is a 72 year old male. CC Cscope abd pain & constipation self ref ins MCR/Op Eng PMHx HTN Other heart disease - CAD Comments: diverticulits, PSHx CABG EGD colonoscopy - 2017 diverticulum Hip replacement at age 1 - right Comments: Ventral hernia with mesh, tonsillectomy, cholecystectomy, leg surgery FHx mother: father: , +Heart Attack Comments: pancreatic Soc Hx Tobacco: Never smoker Alcohol: Occasional drink Medications METRONIDAZOLE 500 MG TABS (Edited by THADDEUS RAMSAY on Jan, at 03:00 AM ) CEFDINIR 300 MG CAPS (Edited by THADDEUS RAMSAY on Jan, at 03:00 AM ) METHYLPREDNISOLONE 4 MG DOSEPK, TAKE DIRECTED (Edited by THADDEUS RAMSAY on Jan, at 03:00 AM ) ROSUVASTATIN CALCIUM 40 MG TABS (Edited by VALENTINE URIBE on Jan, at 03:00 AM ) XARELTO 20 MG TABS (Edited by VALENTINE URIBE on December, at 03:00 AM ) LOSARTAN POTASSIUM 25 MG TABS (Edited by VALENTINE URIBE on December, at 03:00 AM ) AMIODARONE HCL 100 MG TABLET, TAKE 1 TABLET BY MOUTH EVERY DAY (Edited by LIZZY URIBE on Nov, at 03:00 AM ) DUTASTERIDE-TAMSULOSIN 0.5-0.4, TAKE 1 CAPSULE BY MOUTH EVERY DAY DIRECTED (Edited by BARBIE ROBERTS on Nov, at 03:00 AM ) Allergies No known allergies HPI denies abdoemn pain, moving bm daily if not takes prune juice works, had one major episode inpatient diverticultis some time ago, had cscope about 2017. He had a BE last year, our records dont show any recent cscope after his diverticular flare up, hx polyps as well. I believe he may not have been cleared by his concreting supervisor. ROS A 12 point review of systems was obtained. All pertinent positives are noted in HPI. All other systems otherwise negative. EXAM Gen- NAD Chest-clear, non-labored CV- RRR Abdomen- Soft, nttp Integ- Warm dry, no rash Neuro- Alert and orientated Psych- Appropriate Assessment Recurrent diverticulitis, Dr Barroso is cardiology Plan Colonoscopy Medications & Allergies Home Medications: Home Medication List Aspirin 62 mg PO HS 01/18/17 [History Confirmed 04/22/22] Amiodarone HCl 200 mg [Cordarone 200 MG] 100 mg PO DAILY 07/10/18 [History Confirmed 04/22/22] Rivaroxaban 10 mg Tablet [Xarelto 10 mg Tablet] 20 mg PO DAILY 07/10/18 [History Confirmed 04/22/22] Losartan Potassium [Cozaar] 25 mg PO DAILY 05/22/19 [History Confirmed 04/22/22] Dutasteride/Tamsulosin HCl [Dutasteride-Tamsulosin 0.5-0.4] 1 tab PO DAILY 12/20/21 [History Confirmed 04/22/22] Rosuvastatin Calcium 1 tab PO DAILY 12/20/21 [History Confirmed 04/22/22] Fluticasone Propionate [Flonase NASAL] 1 spray INTRANASAL DAILY PRN 04/22/22 [History Confirmed 04/22/22] Loratadine 10 mg [Claritin 10 mg] 1 tab PO DAILY 04/22/22 [History Confirmed 04/22/22] Metoprolol Succinate 1 tab PO DAILY 04/22/22 [History Confirmed 04/22/22] Nitroglycerin 0.4 mg Tablet [Nitrostat 0.4 MG Tablet] 1 tab PO Q5MIN PRN MR X 3 PRN 04/22/22 [History Confirmed 04/22/22] Allergies/Adverse Reactions: Allergies Allergy/AdvReac Type Severity Reaction Status Date / Time morphine AdvReac Verified 04/22/22 07:11 - Past Medical History Past Medical History: Yes Neurological History: No Pertinent History ENT History: Cataracts Cardiac History: Arrhythmia, High Cholesterol, Hypertension, Myocardial Infarction ([place]) Respiratory History: No Pertinent History Endocrine Medical History: No Pertinent History Musculoskelatal History: Arthritis GI Medical History: Diverticulosis History: No Pertinent History Pyscho-Social History: No Pertinent History Male Reproductive Disorders: No Pertinent History Comment: HX OF OPEN HEART SURGERY AND HAS HAD STENTS PLACED. Had pacemaker last week - Past Surgical History Past Surgical History: Yes Neuro Surgical History: No Pertinent History Cardiac History: Angioplasty, CABG, Cardiac Catheterization, Cardiac Stent Respiratory Surgery: No Pertinent History GI Surgical History: Cholecystectomy Genitourinary Surgical Hx: No Pertinent History Musculskeletal Surgical Hx: Orthopedic Surgery Male Surgical History: Vasectomy Other Surgical History: total hip right, broken femur left leg, broken ankle. rods and steel placed in leg to repair. - Social History Smoking Status: Never smoker Exposure to second hand smoke: No Alcohol: Occasionally Drug Use: none
[2023-02-02] MEDS ORDERED: Lactated Ringers 1,000 ML IV SCH (07:30)
[2023-02-02] MEDS ORDERED: Lactated Ringers 1,000 ML IV ONE (07:56)
[2023-02-02] MEDS ORDERED: Versed 2 MG/2 ML Injection ONE (10:09)
[2023-02-02] MEDS ORDERED: DIPRIVAN 200 MG/20 ML IV ONE (10:09)
[2023-02-02] MEDS ORDERED: GlucaGen 1 MG ONE (10:26)
[2023-02-02 11:11] VITALS: PULSE 60
[2023-02-02 11:16] VITALS: BP 111/51; O2SAT 95
--- NOTE | 2023-02-02 12:58 | OP ---
SURGERY DATE/TIME: 02/02/2023 1015 PREOPERATIVE DIAGNOSIS: Follow up polyps. POSTOPERATIVE DIAGNOSES: 1) Moderate sigmoid diverticulosis. 2) Moderate internal hemorrhoids. 3) No polyps today. 4) Prep score excellent. 5) Follow up exam in three years. PROCEDURE: Colonoscopy complete to cecum. SURGEON: Galen Ryan M.D. FABRICATOR FOAM RUBBER: Collin Avila M.D., [facility]. ANESTHESIA: MAC. COMPLICATIONS: None. CONDITION: Stable. INDICATION: The patient has history of polyps presents for exam. DESCRIPTION OF PROCEDURE: Taken to endoscopy. Left lateral decubitus position. Anal digital examination satisfactory. Prostate satisfactory. Scope advanced to the cecum. Base of the cecum, ileocecal valve, appendiceal orifice normal. Ascending, hepatic, transverse, splenic, descending, sigmoid, rectum, anus moderate sigmoid diverticulosis, moderate internal hemorrhoids. The patient tolerated the procedure satisfactorily. Follow up in three years. Prep score excellent.
== END 2023-02-02 11:40 | disposition home or self-care (01) ==
LOC: SDC 07:09 → EDSTATUS 07:47 → SDC 11:40
PROVIDERS: ATTEND Surgery
DX: Z09 Encounter for follow-up examination after completed treatment for conditions other than malignant neoplasm (principal); Z86.010 Personal history of colon polyps; K57.30 Diverticulosis of large intestine without perforation or abscess without bleeding; K64.8 Other hemorrhoids
CPT/HCPCS: 99100; J1610; J2250; J2704

== ENCOUNTER 2024-03-25 14:42 | Emergency (ER) | payer MEDICARE ==
[2024-03-25 14:54] VITALS: TEMP 97.8
[2024-03-25] MEDS ORDERED: XYLOCAINE 1% HCL 20 ML MDV ONE (14:56)
--- NOTE | 2024-03-25 15:48 | ERPHSYRPT ---
- History of Present Illness Source: patient Exam Limitations: no limitations Patient Subjective Stated Complaint: Pt states "I dropped a pallet on my left ankle." Triage Nursing Assessment: PT presented alert and oriented X 3, skin pwd. pt ambulates with a limp. Pt had his left ankle wrapped and taped. Once the tape was removed, pt left medial ankle had a laceration in the shape of a V, bleeding controlled. Physician History: Patient has laceration to his left leg. It is about 3 inches long. Happened just prior to arrival. They did it when he was throwing a pallet it bounced back and landed on his leg and tore his skin. Allergies/Adverse Reactions: morphine Adverse Reaction (Verified 04/22/22 07:11) Home Medications: Aspirin 81 mg PO DAILY 01/18/17 [History] Amiodarone HCl 200 mg [Cordarone 200 MG] 100 mg PO DAILY 07/10/18 [History] Rivaroxaban 10 mg Tablet [Xarelto 10 mg Tablet] 20 mg PO DAILY 07/10/18 [History] Dutasteride/Tamsulosin HCl [Dutasteride-Tamsulosin 0.5-0.4] 1 tab PO DAILY 12/20/21 [History] Rosuvastatin Calcium 1 tab PO DAILY 12/20/21 [History] Metoprolol Succinate 1 tab PO DAILY 04/22/22 [History] Empagliflozin [Jardiance] 10 mg PO DAILY 03/25/24 [History] Ezetimibe 10 mg [Zetia 10 MG] 10 mg PO DAILY 03/25/24 [History] Sacubitril/Valsartan [Entresto 24 mg-26 mg Tablet] 1 each PO DAILY 03/25/24 [History] Hx Tetanus, Diphtheria Vaccination/Date Given: Yes Hx Influenza Vaccination/Date Given: No Hx Pneumococcal Vaccination/Date Given: No Immunizations Up to Date: No Travel Risk - International Travel Have you traveled outside of the country in past 3 weeks: No - Emerging Infectious Disease Are you exhibiting symptoms associated with any current EIDs: No - Review of Systems Constitutional: No Symptoms Eyes: No Symptoms Ears, Nose, & Throat: No Symptoms Respiratory: No Symptoms Skin: No Symptoms Neurological: No Symptoms Psychological: No Symptoms Endocrine: No Symptoms Hematologic/Lymphatic: No Symptoms All Other Systems: Reviewed and Negative - Past Medical History Pertinent Past Medical History: Yes Neurological History: No Pertinent History ENT History: Cataracts Cardiac History: Arrhythmia, High Cholesterol, Hypertension, Myocardial Infarction ([place]) Respiratory History: No Pertinent History Endocrine Medical History: No Pertinent History Musculoskeletal History: Arthritis GI Medical History: Diverticulosis History: No Pertinent History Psycho-Social History: No Pertinent History Male Reproductive Disorders: No Pertinent History Other Medical History: HX OF OPEN HEART SURGERY AND HAS HAD STENTS PLACED. Had pacemaker - Past Surgical History Past Surgical History: Yes Neuro Surgical History: No Pertinent History Cardiac: Angioplasty, CABG, Cardiac Catheterization, Cardiac Stent Respiratory: No Pertinent History Gastrointestinal: Cholecystectomy Genitourinary: No Pertinent History Musculoskeletal: Orthopedic Surgery Male Surgical History: Vasectomy Other Surgical History: total hip right, broken femur left leg, broken ankle. rods and steel placed in leg to repair. - Social History Smoking Status: Former smoker Exposure to second hand smoke: Yes Drug Use: none Patient Lives Alone: No - Social Determinants of Health Will the patient participate in the screening: Declined to provide - Nursing Vital Signs Nursing Vital Signs: Initial Vital Signs Temperature 97.8 F 03/25/24 14:47 Pulse Rate 81 03/25/24 14:47 Respiratory Rate 22 03/25/24 14:47 Blood Pressure 130/67 03/25/24 14:47 Pain Scale Pain Intensity 4 - Physical Exam General Appearance: no apparent distress Eyes, Ears, Nose, Throat Exam: normal ENT inspection Legs Exam: left leg: other (3 inch laceration to the left lower extremity. It is into the subcutaneous tissue but is not down into any of the nerves vessels or tendons muscles or bone. The wound is clean. More peripheral neurovascular is intact distal to the injury.) Knees Exam: bilateral knee: non-tender, normal inspection, normal range of motion Procedures - Laceration/Wound Repair Left Lower Calf Time of Procedure: 15:40 Wound Location: Left, lower leg Wound Length (cm): 8 Wound's Depth, Shape: superficial Wound Explored: clean Irrigated: Yes Hibiclens Prep: Yes Anesthesia: local, 1% Lidocaine Volume Anesthetic (ccs): 10 Wound Debrided: minimal Suture Size/Type: 4-0, ethilon Number of Sutures: 15 Layer Closure?: No Sterile Dressing Applied?: Yes Splint Applied?: No Sling Applied?: No Ordered Tests: Medication Summary Discontinued Medications Generic Name Dose Route Start Last Admin Trade Name James PRN Reason Stop Dose Admin Lidocaine HCl Confirm 03/25/24 14:56 Lidocaine Hcl 1% 20 Ml Mdv 20 Ml Ml Administered 03/25/24 14:57 Dose 1 ml .R[employer]TE .[employer] - Progress Progress: improved Medical Desision Making - Risk of complications Minimal Risk: Minimal risk of morbidity - Departure Departure Disposition: Home Clinical Impression: Laceration of left lower leg Qualifiers: Encounter type: initial encounter Qualified Code(s): S81.812A - Laceration without foreign body, left lower leg, initial encounter Condition: Stable Critical Care Time: No Referrals: ALEX HANCOCK NP [Primary Care Provider] - Follow up/PCP as directed Instructions: Laceration Repair With Stitches (DC) Additional Instructions: Do dressing changes twice a day for 2 days with Neosporin. After that just keep it covered but do not use Neosporin. Sutures out in 7 to 10 days.
[2024-03-25 16:07] VITALS: BP 121/63; PULSE 68; RESP 20; O2SAT 98
== END 2024-03-25 16:12 | disposition home or self-care (01) ==
LOC: ED 14:42
DX: S81.812A Laceration without foreign body, left lower leg, initial encounter (principal); W20.8XXA Other cause of strike by thrown, projected or falling object, initial encounter; E78.5 Hyperlipidemia, unspecified; I10 Essential (primary) hypertension; Z79.01 Long term (current) use of anticoagulants; Z79.84 Long term (current) use of oral hypoglycemic drugs; Z79.899 Other long term (current) drug therapy
CPT/HCPCS: 12004; 99282